=== PATIENT | male | born 1945 | race Caucasian/White ===

== ENCOUNTER 2022-02-17 12:22 | Inpatient (IN) ==
[2022-02-17] MEDS ORDERED: Lactated Ringers 1000 ml BAG 1,000 ML IV ONE (13:13)
[2022-02-17] MEDS ORDERED: Lactated Ringers 500 ml BAG 500 ML IV ONE (13:14)
[2022-02-17 13:27] LABS: ABS Lymphocytes 1.3 10^3/ul (1.0-4.8); ABS Monocytes 0.7 10^3/ul (0-0.8); Eosinophil % 0.2 %; Hematocrit 45 % (42-52); Hemoglobin 15.1 g/dL (14.0-18.0); Lymphocyte % 25.7 %; Mean Corpuscular HGB Conc 34 g/dL (31-36); Mean Corpuscular Hemoglobin 31 pg (27-31); Mean Corpuscular Volume 93 fL (80-94); Mean Platelet Volume 8.7 fL (7.4-10.4); Platelet Count 198 10^3/uL (150-450); Red Blood Count 4.85 10^6 /uL (4.18-5.48); Red Cell Distribution Width 14 % (10-15); White Blood Count 4.9 10^3/uL (3.5-10.8)
[2022-02-17 13:36] LABS: INR 1.16 (0.89-1.11)
[2022-02-17] MEDS ORDERED: Metoprolol Tartrate 5 mg VIAL 5 ml VIAL (1 mg/ml) IV ONE (13:38)
[2022-02-17 14:45] LABS: Albumin 4.4 g/dL (3.2-5.2); Albumin/Globulin Ratio 1.3 (1-3); C Reactive Protein 15.16 mg/L (<8.01); Calcium 9.9 mg/dL (8.6-10.3); Globulin 3.5 g/dL (2-4); Magnesium 1.4 mg/dL (1.9-2.7); Potassium 3.8 mmol/L (3.5-5.0); Total Bilirubin 0.8 mg/dL (0.2-1.0); Total Protein 7.9 g/dL (6.4-8.9); eGFR CKD-EPI 32.7 (>60)
[2022-02-17 15:43] LABS: High Sensitivity Troponin 1 Hr 59 pg/mL (<20)
[2022-02-17] MEDS ORDERED: Metoclopramide 5 MG/ML VIAL (10 mg) IV ONE (15:51)
[2022-02-17] MEDS ORDERED: Piperacillin/Tazobac ADVAN 3.375 GM in NS 0.9% 100 ml BAG 100 ML IV ONE (15:57)
[2022-02-17] MEDS ORDERED: Enoxaparin 30 MG/0.3 ML SYR SUBCUT SCH (20:00)
[2022-02-17 20:19] LABS: Urine Appearance Cloudy; Urine Bilirubin Negative (Negative); Urine Blood 2+ (Negative); Urine Color Yellow; Urine Glucose Negative (Negative); Urine Ketones Negative (Negative); Urine Nitrite Negative (Negative); Urine Protein Negative (Negative); Urine Specific Gravity 1.012 (1.002-1.030); Urine Urobilinogen Negative (Negative)
[2022-02-17 20:25] LABS: Urine Bacteria 2+ (Absent); Urine Red Blood Cell 2+(6-10/hpf) (Absent); Urine White Blood Cell 3+(>20/hpf) (Absent)
[2022-02-17] MEDS ORDERED: Iodixanol (CONTRAST) 320 MG/ML 100 ML SDV IV ONE (20:31)
[2022-02-17] MEDS ORDERED: Potassium Chlor 20 meq TAB.ER PO ONE (20:55)
[2022-02-17] MEDS ORDERED: Magnesium Sulf 4 GM/100 ML IV 4,000 MG/100 ML BAG IVPB ONE (20:55)
[2022-02-17] MEDS ORDERED: Cefepime 2 GM in Dextrose 2 GM/50 ML BAG IV SCH (21:00)
[2022-02-17] MEDS ORDERED: Vancomycin per Pharmacy 1 EA NOTE FOLLOW UP SCH (21:00)
[2022-02-17] MEDS ORDERED: Cefepime 1 GM in Dextrose 1 GM/50 ML BAG IV SCH (21:00)
[2022-02-17] MEDS: Cefepime 1 GM in Dextrose 1 GM/50 ML BAG IV SCH (22:06)
[2022-02-17] MEDS ORDERED: Vancomycin 1,000 MG - ED ONCE IVPB ONE (23:00)
[2022-02-17] MEDS: metroNIDAZOLE IV 500 MG/100ML 500 MG/100 ML BAG IVPB SCH (23:27)
[2022-02-18] MEDS: metroNIDAZOLE IV 500 MG/100ML 500 MG/100 ML BAG IVPB SCH (05:31)
[2022-02-18 06:18] LABS: Hematocrit 39 % (42-52); Hemoglobin 13.2 g/dL (14.0-18.0); Mean Corpuscular HGB Conc 34 g/dL (31-36); Mean Corpuscular Hemoglobin 32 pg (27-31); Mean Corpuscular Volume 93 fL (80-94); Mean Platelet Volume 8.6 fL (7.4-10.4); Platelet Count 170 10^3/uL (150-450); Red Blood Count 4.18 10^6 /uL (4.18-5.48); Red Cell Distribution Width 14 % (10-15); White Blood Count 5.1 10^3/uL (3.5-10.8)
[2022-02-18 06:48] LABS: Calcium 9.1 mg/dL (8.6-10.3); Potassium 4.7 mmol/L (3.5-5.0); eGFR CKD-EPI 39.1 (>60)
[2022-02-18 07:37] LABS: ABS Lymphocytes 1.2 10^3/ul (1.0-4.8); ABS Monocytes 0.6 10^3/ul (0-0.8); ABS Neutrophils 3.3 10^3/ul (1.5-7.7); Eosinophil % 0.6 %; Lymphocyte % 22.6 %; Nucleated Red Blood Cells % 0.1; RBC Morphology Normal (Normal)
[2022-02-18 08:20] LABS: Magnesium 2.5 mg/dL (1.9-2.7)
[2022-02-18] MEDS: Cefepime 1 GM in Dextrose 1 GM/50 ML BAG IV SCH ×2 (09:58→23:15)
[2022-02-18] MEDS ORDERED: Metoprolol Tartrate 5 mg VIAL 5 ml VIAL (1 mg/ml) IV PRN ×4 (10:09→11:30)
[2022-02-18] MEDS ORDERED: Vancomycin Random Level NOTE FOLLOW UP ONE (12:00)
[2022-02-18] MEDS ORDERED: Digoxin IV 0.5 MG/2 ML AMP (0.25 MG/ML) IV SLOW PU ONE (12:29)
[2022-02-18] MEDS: Bacitracin OINTMENT TUBE TOPICAL SCH (13:30)
[2022-02-18] MEDS ORDERED: Vancomycin 1,250 MG in NS 0.9% 250 ml 250 ML IVPB SCH (17:00)
[2022-02-19] MEDS: Bacitracin OINTMENT TUBE TOPICAL SCH ×2 (02:56→16:23)
[2022-02-19 06:14] LABS: ABS Lymphocytes 1.6 10^3/ul (1.0-4.8); ABS Monocytes 0.7 10^3/ul (0-0.8); ABS Neutrophils 3.4 10^3/ul (1.5-7.7); Eosinophil % 0.7 %; Hematocrit 36 % (42-52); Hemoglobin 12.4 g/dL (14.0-18.0); Lymphocyte % 28.2 %; Mean Corpuscular HGB Conc 34 g/dL (31-36); Mean Corpuscular Hemoglobin 32 pg (27-31); Mean Corpuscular Volume 92 fL (80-94); Mean Platelet Volume 8.4 fL (7.4-10.4); Platelet Count 183 10^3/uL (150-450); Red Blood Count 3.94 10^6 /uL (4.18-5.48); Red Cell Distribution Width 14 % (10-15); White Blood Count 5.7 10^3/uL (3.5-10.8)
[2022-02-19 06:33] LABS: Calcium 8.9 mg/dL (8.6-10.3); Magnesium 1.7 mg/dL (1.9-2.7); Potassium 4.1 mmol/L (3.5-5.0); eGFR CKD-EPI 45.9 (>60)
[2022-02-19] MEDS ORDERED: Magnesium Sulf 4 GM/100 ML IV 4,000 MG/100 ML BAG IVPB ONE (07:30)
[2022-02-19] MEDS: Cefepime 1 GM in Dextrose 1 GM/50 ML BAG IV SCH (08:57)
[2022-02-19] MEDS ORDERED: Sulfur Hexaflouride MICROSPHR 25 MG VIAL ONE (10:05)
[2022-02-19 12:08] LABS: Digoxin 0.5 ng/ml (0.8-2.0)
[2022-02-19] MEDS ORDERED: Furosemide 20 mg/2 ml IV VIAL IV SLOW PU ONE (14:07)
[2022-02-19 16:23] LABS: INR 1.64 (0.89-1.11)
[2022-02-19] MEDS: Enoxaparin 100 MG/ML SYR SUBCUT SCH (16:23)
[2022-02-19] MEDS ORDERED: Heparin 5000 UNITS/ML 1 mL VIAL SUBCUT SCH (21:00)
[2022-02-20] MEDS: Bacitracin OINTMENT TUBE TOPICAL SCH ×3 (04:29→21:10)
[2022-02-20] MEDS: Enoxaparin 100 MG/ML SYR SUBCUT SCH ×3 (04:31→15:10)
[2022-02-20 06:40] LABS: ABS Eosinophils 0.1 10^3/ul (0-0.6); ABS Lymphocytes 1.6 10^3/ul (1.0-4.8); ABS Monocytes 0.6 10^3/ul (0-0.8); ABS Neutrophils 2.7 10^3/ul (1.5-7.7); Eosinophil % 2.2 %; Hematocrit 42 % (42-52); Hemoglobin 14.1 g/dL (14.0-18.0); Lymphocyte % 31.6 %; Mean Corpuscular HGB Conc 34 g/dL (31-36); Mean Corpuscular Hemoglobin 31 pg (27-31); Mean Corpuscular Volume 93 fL (80-94); Mean Platelet Volume 8.2 fL (7.4-10.4); Platelet Count 223 10^3/uL (150-450); Red Blood Count 4.52 10^6 /uL (4.18-5.48); Red Cell Distribution Width 14 % (10-15)
[2022-02-20 07:43] LABS: Calcium 9.3 mg/dL (8.6-10.3); Magnesium 2.1 mg/dL (1.9-2.7); Phosphorus 3.8 mg/dL (2.5-5.0); Potassium 4.3 mmol/L (3.5-5.0); eGFR CKD-EPI 44.5 (>60)
[2022-02-21] MEDS: Enoxaparin 100 MG/ML SYR SUBCUT SCH ×2 (05:18→16:20)
[2022-02-21 06:34] LABS: Calcium 9.2 mg/dL (8.6-10.3); Magnesium 1.8 mg/dL (1.9-2.7); Potassium 4.4 mmol/L (3.5-5.0); eGFR CKD-EPI 52.3 (>60)
[2022-02-21] MEDS ORDERED: Magnesium Sulfate 2 gm BAG 2 GM/50 ML BAG IVPB ONE (07:14)
[2022-02-21] MEDS: Bacitracin OINTMENT TUBE TOPICAL SCH ×2 (10:14→23:02)
[2022-02-21] MEDS ORDERED: Vancomycin Trough Check NOTE FOLLOW UP ONE (16:30)
[2022-02-22] MEDS ORDERED: NS 0.9% 1000 ml BAG 1,000 ML IV SCH (02:00)
[2022-02-22 06:17] LABS: ABS Basophils 0.1 10^3/ul (0-0.2); ABS Eosinophils 0.1 10^3/ul (0-0.6); ABS Monocytes 0.7 10^3/ul (0-0.8); ABS Neutrophils 2.8 10^3/ul (1.5-7.7); Eosinophil % 2.1 %; Hematocrit 42 % (42-52); Hemoglobin 14.4 g/dL (14.0-18.0); Lymphocyte % 35.5 %; Mean Corpuscular HGB Conc 35 g/dL (31-36); Mean Corpuscular Hemoglobin 32 pg (27-31); Mean Corpuscular Volume 92 fL (80-94); Mean Platelet Volume 8.3 fL (7.4-10.4); Nucleated Red Blood Cells % 0.1; Platelet Count 272 10^3/uL (150-450); Red Blood Count 4.53 10^6 /uL (4.18-5.48); Red Cell Distribution Width 13 % (10-15); White Blood Count 5.7 10^3/uL (3.5-10.8)
[2022-02-22 06:33] LABS: Calcium 9.2 mg/dL (8.6-10.3); Potassium 4.7 mmol/L (3.5-5.0); eGFR CKD-EPI 50.2 (>60)
[2022-02-22] MEDS: Bacitracin OINTMENT TUBE TOPICAL SCH ×2 (09:19→23:13)
[2022-02-22] MEDS ORDERED: Cefepime 1 GM in Dextrose 1 GM/50 ML BAG IV SCH (10:00)
[2022-02-22] MEDS ORDERED: fentaNYL 100 mcg/2 ml 50 MCG/ML VIAL ONE (13:08)
[2022-02-22] MEDS ORDERED: Midazolam 5 mg/5 ml VIAL 1 mg/ml 5 ml VIAL (5 mg) ONE (13:08)
[2022-02-22] MEDS ORDERED: nitroGLYCERIN DRIP 25,000 MCG/250 ML BTL ONE (13:57)
[2022-02-22] MEDS ORDERED: VERAPAMIL 2.5 MG/ML 2 ML VIAL ** 5 mg/2 ml ONE (13:57)
[2022-02-22] MEDS ORDERED: Heparin 1,000 UNIT/ML 10 ml (10,000 UNITS) CATHLAB/DIALYSIS ONE (13:57)
[2022-02-22] MEDS ORDERED: Heparin 2 UNITS/ML 1000 mls 2,000 ML IV ONE (13:57)
[2022-02-22] MEDS ORDERED: Lidocaine 1% MPF 5 ML VIAL ONE (13:57)
[2022-02-22] MEDS ORDERED: Iohexol 350 (CONTRAST) 100 ML PAK IV ONE (13:58)
[2022-02-22] MEDS ORDERED: Enoxaparin 60 MG/0.6 ML SYR SUBCUT SCH (17:00)
[2022-02-22] MEDS: Enoxaparin 80 MG/0.8 ML SYR SUBCUT SCH (17:49)
[2022-02-23 05:10] LABS: ABS Eosinophils 0.1 10^3/ul (0-0.6); ABS Lymphocytes 1.7 10^3/ul (1.0-4.8); ABS Monocytes 0.8 10^3/ul (0-0.8); ABS Neutrophils 3.2 10^3/ul (1.5-7.7); Eosinophil % 2.2 %; Hematocrit 40 % (42-52); Hemoglobin 13.5 g/dL (14.0-18.0); Lymphocyte % 28.7 %; Mean Corpuscular HGB Conc 34 g/dL (31-36); Mean Corpuscular Hemoglobin 31 pg (27-31); Mean Corpuscular Volume 92 fL (80-94); Platelet Count 292 10^3/uL (150-450); Red Blood Count 4.33 10^6 /uL (4.18-5.48); Red Cell Distribution Width 14 % (10-15); White Blood Count 5.8 10^3/uL (3.5-10.8)
[2022-02-23 05:21] LABS: Calcium 8.9 mg/dL (8.6-10.3); Magnesium 1.7 mg/dL (1.9-2.7); Potassium 4.6 mmol/L (3.5-5.0)
[2022-02-23 05:27] LABS: eGFR CKD-EPI 60.7 (>60)
[2022-02-23] MEDS ORDERED: Magnesium Sulfate IV 3 GM in NS 0.9% 100 ml BAG 100 ML IVPB ONE (07:35)
[2022-02-23] MEDS: Bacitracin OINTMENT TUBE TOPICAL SCH ×2 (09:09→20:25)
[2022-02-23] MEDS: Enoxaparin 80 MG/0.8 ML SYR SUBCUT SCH (09:09)
[2022-02-23] MEDS: Aspirin EC 81 mg TAB.EC (enteric coated) PO SCH (12:08)
[2022-02-24 05:45] LABS: Potassium 4.5 mmol/L (3.5-5.0)
[2022-02-24 05:50] LABS: eGFR CKD-EPI 50.6 (>60)
[2022-02-24] MEDS: Aspirin EC 81 mg TAB.EC (enteric coated) PO SCH (08:45)
[2022-02-24] MEDS ORDERED: Lactated Ringers 500 ml BAG 500 ML IV ONE (09:13)
[2022-02-24 11:12] LABS: TSH Ultra Thyroid Stim Horm 1.48 mcIU/mL (0.34-5.60)
[2022-02-24 11:14] LABS: Free T4 1.26 ng/dL (0.61-1.12)
[2022-02-24] MEDS: Bacitracin OINTMENT TUBE TOPICAL SCH ×2 (11:47→22:09)
[2022-02-24 11:53] LABS: Free T3 2.7 pg/mL (2.5-3.9)
[2022-02-24 12:36] LABS: HDL Cholesterol 26.1 mg/dL
[2022-02-25] MEDS: Bacitracin OINTMENT TUBE TOPICAL SCH ×2 (11:36→21:24)
[2022-02-26] MEDS ORDERED: Calcium Carb (TUMS) 500 mg CHEW TAB PO PRN (00:14)
[2022-02-26 05:55] LABS: Calcium 9.2 mg/dL (8.6-10.3); Magnesium 1.6 mg/dL (1.9-2.7); Phosphorus 3.8 mg/dL (2.5-5.0); Potassium 4.8 mmol/L (3.5-5.0); eGFR CKD-EPI 46.6 (>60)
[2022-02-26] MEDS ORDERED: Magnesium Sulf 4 GM/100 ML IV 4,000 MG/100 ML BAG IVPB ONE (06:22)
[2022-02-26] MEDS: Bacitracin OINTMENT TUBE TOPICAL SCH (14:40)
[2022-02-26 21:12] VITALS: BP 109/63
== END 2022-02-26 22:00 | disposition home or self-care (01) | DRG 919 ==
LOC: EDHOLD 12:22 → ED 12:22 → SUATTDRO 02-18 12:05 → EDHOLD 02-18 15:22 → MEDTELE 02-18 15:30
PROVIDERS: ADMIT Internal Medicine; ATTEND Internal Medicine